=== PATIENT | female | born 1990 | race Caucasian/White ===

== ENCOUNTER 2017-02-10 13:44 | Outpatient (CLI) | payer MEDICAID | END 2017-02-10 13:45 | disposition home or self-care (01) | DX: M71.572 Other bursitis, not elsewhere classified, left ankle and foot (principal); M71.571 Other bursitis, not elsewhere classified, right ankle and foot ==

== ENCOUNTER 2017-08-14 11:31 | Outpatient (CLI) | payer MEDICAID ==
--- NOTE | 2017-08-14 12:47 | XRAY Report ---
THREE VIEW LUMBAR SPINE: 08/14/2017 CLINICAL INDICATION: Back pain. FINDINGS: AP, lateral, and coned down views of the lumbar spine demonstrate no evidence of fracture. The disk spaces are preserved. The facets appear unremarkable. There is minimal levoscoliosis of the lumbar spine, which may be positional in nature. IMPRESSION: MINIMAL LEVOSCOLIOSIS. NO EVIDENCE OF COMPRESSION FRACTURE OR SUBLUXATION. JOB #: [id number] EXT JOB #:[id number]
== END 2017-08-14 11:32 | disposition home or self-care (01) ==
LOC: DI.N 11:31
PROVIDERS: ATTEND Physician Assistant Medical
DX: M41.86 Other forms of scoliosis, lumbar region (principal); E66.01 Morbid (severe) obesity due to excess calories
CPT/HCPCS: 72100